=== PATIENT | male | born 1985 | race African-American/Black ===

== ENCOUNTER 2017-01-04 12:12 | Emergency (ER) | payer BC ==
[~2017-01-04] VITALS: Ht 170.2 cm; Wt 70.1 kg
[2017-01-04] MEDS ORDERED: AMOXICILLIN500 M1 PO (12:49)
[2017-01-04] MEDS ORDERED: TYLENOL WITH C1 EACH PO (12:49)
[2017-01-04] MEDS ORDERED: MOTRIN800 MG PO (12:49)
[2017-01-04 13:16] VITALS: BP 137/70
== END 2017-01-04 13:17 | disposition home or self-care (01) ==
LOC: EME 12:12
DX: K08.89 Other specified disorders of teeth and supporting structures (principal); F17.200 Nicotine dependence, unspecified, uncomplicated
CPT/HCPCS: 99281; 99284